=== PATIENT | male | born 1960 | race Caucasian/White ===

== ENCOUNTER 2024-07-26 12:39 | Outpatient (CLI) | payer OTHER | END 2024-07-26 12:40 | disposition home or self-care (01) | LOC: CSHULT 12:39 | PROVIDERS: ATTEND Chiropractor | DX: I25.9 Chronic ischemic heart disease, unspecified (principal); I51.7 Cardiomegaly; I34.81 Nonrheumatic mitral (valve) annulus calcification; I70.0 Atherosclerosis of aorta; I77.810 Thoracic aortic ectasia | CPT/HCPCS: 93306 ==